=== PATIENT | male | born 1955 | race African-American/Black ===

== ENCOUNTER 2018-04-20 14:58 | Emergency (ER) | payer MEDICARE, OTHER ==
[~2018-04-20] VITALS: Ht 177.8 cm; Wt 68.0 kg
[~2018-04-20 14:58] MED LIST: ATORVASTATIN CA20 MG ORAL; FOLIC ACID1 MG ORAL; IBUPROFEN600 MG ORAL; KEPPRA500 M4 ORAL; LEVETIRACETAM750 MG ORAL; RANITIDINE HCL150 MG ORAL; THIAMINE HCL100 MG ORAL; ZANTAC150 MG ORAL
--- NOTE | 2018-04-20 15:37 | Emergency Room Report ---
History of Present Illness General Chief Complaint: Generalized Weakness Source: Patient, Medical Record Present Illness HPI Patient is a 62-year-old male sent in by nursing facility after decreased appetite. Patient was noted to have not been eating since 1 day prior to arrival. Patient prior history of dementia. Patient was noted to have the increased generalized weakness. He had not been noted to be vomiting. Patient denies any current locations of pain. History is limited by poor historian. Allergies: Coded Allergies: No Known Allergies (Unverified , 07/02/16) Patient History Reviewed Nursing Documentation: PMH: Agreed; PSxH: Agreed Nursing Documentation-PMH Past Medical History: No History, Except For Hx Cardiac Problems: Yes Hx Hypertension: Yes Hx Cancer: No Hx Gastrointestinal Problems: No Hx Neurological Problems: Yes - h/o intracraneal bleeding Hx Seizures: Yes Hx Traumatic Brain Injury: Yes - 2011 Hx Memory Loss: Yes Hx Speech Problem: Yes - Slurred speech Review of Systems All Other Systems: negative except mentioned in HPI Physical Exam Vital Signs Date Time Temp Pulse Resp B/P (MAP) Pulse Ox O2 Delivery O2 Flow Rate FiO2 04/20/18 14:58 98.8 101 18 119/75 98 Room Air 98.8 Sp02 EP Interpretation: reviewed, normal General Appearance: normal inspection, well appearing, no apparent distress, alert Head: atraumatic ENT: normal ENT inspection, hearing grossly normal, normal voice Neck: normal inspection, full range of motion, supple, no bony tend Respiratory: normal inspection, lungs clear, normal breath sounds, no respiratory distress, no retraction, no wheezing Cardiovascular #1: regular rate, rhythm, no edema Gastrointestinal: normal inspection, normal bowel sounds, non tender, soft, no guarding, no hernia Genitourinary: no CVA tenderness Musculoskeletal: normal inspection, back normal, normal range of motion Neurologic: normal inspection, alert, responsive, speech normal Psychiatric: normal inspection, judgement/insight normal, mood/affect normal Skin: normal inspection, normal color, no rash Medical Decision Making Diagnostic Impression: Primary Impression: Generalized weakness ER Course Patient presented for generalized weakness. Differential diagnosis included was not limited to anemia, urinary tract infection, electrolyte abnormality, hypothyroidism, myocardial infarction, myasthenia gravis, dehydration, among others. Because of complexity of patient's case laboratory testing and imaging studies were ordered.The laboratory studies are unremarkable. The urinalysis showed no evidence of infection. Patient was able to eat while in the emergency department without any assistance. Patient denies any pain at this time.The patient appears be stable for discharge back to his facility. Patient was ambulatory in the emergency department. Labs Test 04/20/18 16:22 04/20/18 16:30 Urine Color Yellow Urine Appearance Clear Urine pH 6.0 (4.5-8.0) Urine Specific [place] 1.020 (1.005-1.035) Urine Protein 1+ (NEGATIVE) Urine Glucose (UA) Negative (NEGATIVE) Urine Ketones Negative (NEGATIVE) Urine Blood Negative (NEGATIVE) Urine Nitrite Negative (NEGATIVE) Urine Bilirubin Negative (NEGATIVE) Urine Urobilinogen Normal MG/DL (0.0-1.0) Urine Leukocyte Esterase Negative (NEGATIVE) Urine RBC 0-2 /HPF (0 - 0) Urine WBC 0-2 /HPF (0 - 0) Urine Squamous Epithelial Cells Occasional /LPF Urine Bacteria Few /HPF (NONE) Urine Mucus Moderate /LPF (NONE/OCC) White Blood Count 4.1 K/UL (4.8-10.8) Red Blood Count 4.44 M/UL (4.70-6.10) Hemoglobin 12.2 G/DL (14.2-18.0) Hematocrit 35.7 % (42.0-52.0) Mean Corpuscular Volume 80 FL (80-99) Mean Corpuscular Hemoglobin 27.4 PG (27.0-31.0) Mean Corpuscular Hemoglobin Concent 34.1 G/DL (32.0-36.0) Red Cell Distribution Width 11.7 % (11.6-14.8) Platelet Count 308 K/UL (150-450) Mean Platelet Volume 6.6 FL (6.5-10.1) Neutrophils (%) (Auto) 45.4 % (45.0-75.0) Lymphocytes (%) (Auto) 41.9 % (20.0-45.0) Monocytes (%) (Auto) 9.3 % (1.0-10.0) Eosinophils (%) (Auto) 1.7 % (0.0-3.0) Basophils (%) (Auto) 1.7 % (0.0-2.0) Sodium Level 139 MMOL/L (136-145) Potassium Level 4.1 MMOL/L (3.5-5.1) Chloride Level 103 MMOL/L (98-107) Carbon Dioxide Level 32 MMOL/L (21-32) Anion Gap 5 mmol/L (5-15) Blood Urea Nitrogen 15 mg/dL (7-18) Creatinine 1.1 MG/DL (0.55-1.30) Estimat Glomerular Filtration Rate > 60 mL/min (>60) Glucose Level 97 MG/DL (74-106) Calcium Level 10.0 MG/DL (8.5-10.1) Total Bilirubin 0.4 MG/DL (0.2-1.0) Aspartate Amino Transf (AST/SGOT) 16 U/L (15-37) Alanine Aminotransferase (ALT/SGPT) 19 U/L (12-78) Alkaline Phosphatase 60 U/L (46-116) Troponin I 0.000 ng/mL (0.000-0.056) Total Protein 8.6 G/DL (6.4-8.2) Albumin 3.5 G/DL (3.4-5.0) Globulin 5.1 g/dL Albumin/Globulin Ratio 0.7 (1.0-2.7) Thyroid Stimulating Hormone (TSH) 1.714 uiU/mL (0.358-3.740) Last Vital Signs Date Time Temp Pulse Resp B/P (MAP) Pulse Ox O2 Delivery O2 Flow Rate FiO2 04/20/18 14:58 98.8 101 18 119/75 98 Room Air 98.8 Status: improved Disposition: XFER SNF Condition: Stable Pio Fraser MD Apr 20, 2018 15:37
[2018-04-20 15:39] VITALS: BP 122/78
[2018-04-20] MEDS ORDERED: Sodium Chloride 500ML 500 ML IV ONE (16:15)
[2018-04-20 16:52] LABS: BASOPHILS % (AUTO) 1.7 % (0.0-2.0); EOSINOPHILS % (AUTO) 1.7 % (0.0-3.0); HEMATOCRIT 35.7 % (42.0-52.0); HEMOGLOBIN 12.2 G/DL (14.2-18.0); LYMPHOCYTES % (AUTO) 41.9 % (20.0-45.0); MEAN CORPUSCULAR VOLUME 80 FL (80-99); MONOCYTES % (AUTO) 9.3 % (1.0-10.0); NEUTROPHILS % (AUTO) 45.4 % (45.0-75.0); PLATELET COUNT 308 K/UL (150-450); RED BLOOD COUNT 4.44 M/UL (4.70-6.10); RED CELL DISTRIBUTION WIDTH 11.7 % (11.6-14.8); WHITE BLOOD COUNT 4.1 K/UL (4.8-10.8)
[2018-04-20 16:59] VITALS: BP 134/73
[2018-04-20] MEDS ORDERED: ASPIRIN-LOW81 MG ORAL (17:10)
[2018-04-20 17:30] LABS: ANION GAP 5 mmol/L (5-15); BLOOD UREA NITROGEN 15 mg/dL (7-18); CARBON DIOXIDE 32 MMOL/L (21-32); CHLORIDE 103 MMOL/L (98-107); CREATININE 1.1 MG/DL (0.55-1.30); POTASSIUM 4.1 MMOL/L (3.5-5.1); SODIUM 139 MMOL/L (136-145)
[2018-04-20 17:41] LABS: ALANINE AMINOTRANSFERASE 19 U/L (12-78); ALBUMIN 3.5 G/DL (3.4-5.0); ALBUMIN/GLOBULIN RATIO 0.7 (1.0-2.7); ALKALINE PHOSPHATASE 60 U/L (46-116); ASPARTATE AMINO TRANSFERASE 16 U/L (15-37); BILIRUBIN,TOTAL 0.4 MG/DL (0.2-1.0)
[2018-04-20 17:42] LABS: APPEARANCE,URINE CLEAR; BILIRUBIN, URINE NEGATIVE (NEGATIVE); COLOR,URINE YELLOW; GLUCOSE, URINE (UA) NEGATIVE (NEGATIVE); KETONES,URINE NEGATIVE (NEGATIVE); LEUKOCYTE ESTERASE ,URINE NEGATIVE (NEGATIVE); NITRITE,URINE NEGATIVE (NEGATIVE); PROTEIN,URINE 1+ (NEGATIVE); UROBILINOGEN,URINE NORMAL MG/DL (0.0-1.0)
[2018-04-20] MEDS ORDERED: MOM30 ML ORAL (18:22)
[2018-04-20] MEDS ORDERED: MULTI VITAMIN1 EACH ORAL (18:22)
[2018-04-20] MEDS ORDERED: FOLIC ACID1 M1 PO (18:22)
[2018-04-20] MEDS ORDERED: KEPPRA500 M3 ORAL (18:22)
[2018-04-20] MEDS ORDERED: ACETAMINOPHEN325 M1 ORAL (18:22)
[2018-04-20 20:35] VITALS: BP 116/70
== END 2018-04-20 20:35 ==
LOC: EDBD 14:58 → EMR 16:22
DX: R53.1 Weakness (principal); I10 Essential (primary) hypertension; F03.90 Unspecified dementia, unspecified severity, without behavioral disturbance, psychotic disturbance, mood disturbance, and anxiety; Z86.79 Personal history of other diseases of the circulatory system; Z87.820 Personal history of traumatic brain injury
CPT/HCPCS: 36415; 80053; 81003; 84443; 84484; 85025; 99284